=== PATIENT | male | born 1995 | race Caucasian/White ===

== ENCOUNTER 2017-01-12 18:33 | Emergency (ER) | payer OTHER ==
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
[2017-01-12] MEDS ORDERED: OLANZapine DISINTEGR 10 MG TAB PO ONE (18:50)
[2017-01-12] MEDS ORDERED: OLANZapine DISINTEGR 10 MG TAB ONE (19:03)
[2017-01-12 19:11] LABS: % IMMATURE GRANULYOCYTES 0.2 % (0.0-1.1); ABSOLUTE IMMATURE GRANULOCYTES 0.02 10^3/uL (0.00-0.10); ADD DIFF? NO; ADD MORPH? NO; ADD SCAN? NO; ATYPICAL LYMPHOCYTE FLAG 20 (0-99); FRAGMENT RBC FLAG 0 (0-99); HEMATOCRIT 51.4 % (40.0-51.0); HEMOGLOBIN 18.3 g/dL (13.7-17.5); LEFT SHIFT FLG 0 (0-99); LIPEMIA HEMOLYSIS FLAG 90 (0-99); MEAN CELL HEMOGLOBIN CONCENTR. 35.6 g/dL (32.4-36.7); MEAN CELL VOLUME 89.9 fL (81.5-99.8); MEAN PLATELET VOLUME 9.6 fL (8.7-11.7); PLATELET CLUMPS FLAG 0 (0-99); PLATELET COUNT 287 10^3/uL (150-400); RED BLOOD CELL COUNT 5.72 10^6/uL (4.40-6.38); RED CELL DISTRIBUTION WIDTH 12.5 % (11.5-15.2)
[2017-01-12 19:27] LABS: ANION GAP 15 mEq/L (8-16); CALCIUM 10.2 mg/dL (8.5-10.4); CARBON DIOXIDE 23 mEq/l (22-31); CHLORIDE 103 mEq/L (97-110); CREATININE 0.8 mg/dL (0.7-1.3); ETHANOL SERUM < 10 mg/dL (0-10); GLOMERULAR FILTRATION RATE > 60; GLUCOSE 91 mg/dL (70-100); SODIUM 141 mEq/L (134-144)
[2017-01-13 15:56] VITALS: BP 125/82; PULSE 95; O2SAT 95
[2017-01-13 16:48] VITALS: RESP 14; TEMP 98.1
== END 2017-01-13 16:46 ==
LOC: EDUNIT#
DX: F23 Brief psychotic disorder (principal); F17.200 Nicotine dependence, unspecified, uncomplicated
CPT/HCPCS: 80305; G0480

== ENCOUNTER 2017-02-05 22:16 | Emergency (ER) | payer OTHER ==
[2017-02-05 22:45] LABS: % IMMATURE GRANULYOCYTES 0.3 % (0.0-1.1); ABSOLUTE IMMATURE GRANULOCYTES 0.03 10^3/uL (0.00-0.10); ADD DIFF? NO; ADD MORPH? NO; ADD SCAN? NO; ATYPICAL LYMPHOCYTE FLAG 0 (0-99); FRAGMENT RBC FLAG 0 (0-99); HEMATOCRIT 47.1 % (40.0-51.0); HEMOGLOBIN 17.5 g/dL (13.7-17.5); LEFT SHIFT FLG 0 (0-99); LIPEMIA HEMOLYSIS FLAG 90 (0-99); MEAN CELL HEMOGLOBIN 32.6 pg (27.9-34.1); MEAN CELL HEMOGLOBIN CONCENTR. 37.2 g/dL (32.4-36.7); MEAN CELL VOLUME 87.7 fL (81.5-99.8); MEAN PLATELET VOLUME 9.2 fL (8.7-11.7); PLATELET CLUMPS FLAG 0 (0-99); PLATELET COUNT 296 10^3/uL (150-400); RED BLOOD CELL COUNT 5.37 10^6/uL (4.40-6.38)
[2017-02-05 22:56] LABS: ANION GAP 14 mEq/L (8-16); CALCIUM 10.2 mg/dL (8.5-10.4); CARBON DIOXIDE 20 mEq/l (22-31); CHLORIDE 103 mEq/L (97-110); ETHANOL SERUM < 10 mg/dL (0-10); GLOMERULAR FILTRATION RATE > 60; GLUCOSE 82 mg/dL (70-100); POTASSIUM 3.7 mEq/L (3.5-5.2); SODIUM 137 mEq/L (134-144)
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
[2017-02-06] MEDS ORDERED: OLANZapine 10 MG TAB PO ONE (01:13)
[2017-02-06] MEDS ORDERED: OLANZapine DISINTEGR 10 MG TAB ONE (01:16)
[2017-02-06 08:31] VITALS: TEMP 97.2
[2017-02-06 09:36] VITALS: BP 126/76; PULSE 78; RESP 14; O2SAT 98
== END 2017-02-06 09:36 | disposition home or self-care (01) ==
LOC: EDUNIT#
DX: F23 Brief psychotic disorder (principal); F17.200 Nicotine dependence, unspecified, uncomplicated; J45.909 Unspecified asthma, uncomplicated; Z87.820 Personal history of traumatic brain injury
CPT/HCPCS: 80305; G0480

== ENCOUNTER 2017-03-29 12:26 | Emergency (ER) | payer OTHER ==
[2017-03-29 12:34] VITALS: RESP 16
[2017-03-29] MEDS ORDERED: TDAP ADULT 0.5 ML INJ (BOOSTRIX) IM ONE (12:38)
[2017-03-29] MEDS ORDERED: NS 1,000 ML IV ONE (12:41)
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
[2017-03-29] MEDS ORDERED: HYDROmorphONE/DILAUDID 1 MG/ML SYR IVP ONE (13:02)
[2017-03-29 13:47] VITALS: BP 116/74; PULSE 83; TEMP 98.6
[2017-03-29 14:04] VITALS: O2SAT 96
== END 2017-03-29 14:00 | disposition short-term general hospital (02) ==
LOC: CED 12:26
DX: S86.221A Laceration of muscle(s) and tendon(s) of anterior muscle group at lower leg level, right leg, initial encounter (principal); S91.011A Laceration without foreign body, right ankle, initial encounter; S20.112A Abrasion of breast, left breast, initial encounter; S80.211A Abrasion, right knee, initial encounter; S90.812A Abrasion, left foot, initial encounter; S30.810A Abrasion of lower back and pelvis, initial encounter; F17.200 Nicotine dependence, unspecified, uncomplicated; J45.909 Unspecified asthma, uncomplicated; Z23 Encounter for immunization; V23.4XXA Motorcycle driver injured in collision with car, pick-up truck or van in traffic accident, initial encounter; Y92.410 Unspecified street and highway as the place of occurrence of the external cause
CPT/HCPCS: 73610-PO; 73630-PO; 96374; J1170